=== PATIENT | female | born 1960 ===

== ENCOUNTER 2025-07-26 12:00 | Day surgery (SDC) | payer OTHER ==
[2025-07-18 08:09] VITALS: BP 131/84
[2025-07-18 08:36] LABS: BASO % 0.7 % (0.1-1.2); EOS # 0.56 (0.04-0.54); EOS % 7.4 % (0.7-7.0); LYMPH # 2.09 (1.18-3.74); LYMPH % 27.6 % (19.3-53.1); MEAN PLATELET VOLUME 11.20 fl (9.4-12.4); MONO # 0.62 (0.24-0.82); MONO % 8.2 % (4.7-12.5); NEUT # 4.24 (1.56-6.13); NEUT % 55.8 % (34.0-71.1); RED CELL DISTRIBUTION WIDTH 13.2 % (11.6-14.4)
[2025-07-18 09:08] LABS: INR 0.95
[2025-07-18 09:22] LABS: ALT/SGPT 50.0 U/L (12-78); AST/SGOT 23.0 U/L (15-37); BILIRUBIN TOTAL 0.42 mg/dL (0.3-1.2); BUN CREA RATIO 21.0 (7.0-25.0); CREATININE SERUM 0.84 mg/dL (0.55-1.02); GFR 67.63; GLOBULINA 3.3 G/DL (2.4-3.5); GLUCOSE FASTING 79.0 mg/dL (65-100); OSMOLALITY SERUM 286.0 MOSM/KG (275-295)
[~2025-07-26] VITALS: Ht 170.2 cm; Wt 104.3 kg
[~2025-07-26 12:00] MED LIST: BUDESONIDE; DILTIAZEM ER180 M3; IPRATROPIU0.2 MG/1 M; LEVALBUTEROL HCL; ZYRTEC10 M3; [UNRECOGNIZED DRUG - OTHER]
== END 2025-07-26 12:05 | disposition home or self-care (01) ==
LOC: CIR.AMB 12:00
PROVIDERS: ATTEND Internal Medicine
DX: C20 Malignant neoplasm of rectum (principal); K62.89 Other specified diseases of anus and rectum; R93.3 Abnormal findings on diagnostic imaging of other parts of digestive tract; D37.5 Neoplasm of uncertain behavior of rectum